=== PATIENT | male | born 1970 | race Caucasian/White ===

== ENCOUNTER 2021-02-01 08:04 | Inpatient (IN) ==
[2021-02-01] MEDS ORDERED: *HR* Ticagrelor 90 MG TABLET PO ONE (08:17)
[2021-02-01] MEDS ORDERED: *HR* Ticagrelor 90 MG TABLET ONE (08:19)
[2021-02-01] MEDS ORDERED: Aspirin 81 MG TAB.CHEW ONE (08:20)
[2021-02-01] MEDS ORDERED: *HR* Heparin 5,000 UNIT/ML VIAL ONE (08:20)
[2021-02-01] MEDS ORDERED: 0.9 % Sodium Chloride 1,000 ML ONE (08:20)
[2021-02-01] MEDS ORDERED: *HR* HYDROmorphone (PF) 1 MG/ML SYRINGE IVP ONE (08:21)
[2021-02-01] MEDS ORDERED: *HR* Heparin 5,000 UNIT/ML VIAL IVP ONE (08:23)
[2021-02-01] MEDS ORDERED: Heparin 1,000 UNITS/500 mL 500 ML ONE (08:41)
[2021-02-01] MEDS ORDERED: Nitroglycerin 1,000 MCG/5 ML VIAL IV ONE (08:41)
[2021-02-01] MEDS ORDERED: *HR* Heparin 10,000 UNIT/10 ML VIAL ONE ×2 (08:41→09:29)
[2021-02-01] MEDS ORDERED: 0.9 % Sodium Chloride 2,000 ML ONE (08:41)
[2021-02-01] MEDS ORDERED: ISOVUE-370 200 ML INFUS..BTL ONE ×2 (08:41→09:33)
[2021-02-01] MEDS ORDERED: *HR* FentaNYL (PF) 100 MCG/2 ML VIAL ONE (09:14)
[2021-02-01] MEDS ORDERED: *HR* Midazolam HCl 2 MG/2 ML VIAL ONE (09:14)
[2021-02-01 09:21] LABS: Basophils # 0.1 K/mcL (0.0-0.2); Basophils % 0.9 %; Eosinophils # 0.1 K/mcL (0.0-0.6); Eosinophils % 0.6 %; Hemoglobin 13.9 g/dL (12.9-16.9); Immature Granulocytes % 0.5 % (0-4); Lymphocytes # 3.1 K/mcL (0.6-4.6); Lymphocytes % 21.1 %; Mean Corpuscular HGB Conc 33.1 g/dL (31.6-35.5); Mean Corpuscular Hemoglobin 31.4 pg (28.0-33.3); Mean Corpuscular Volume 94.8 fL (83.0-100.0); Monocytes # 0.4 K/mcL (0.0-1.3); Monocytes % 2.7 %; Neutrophils # 10.9 K/mcL (1.6-8.9); Platelet Count 165 K/mcL (140-400); Red Blood Count 4.43 M/mcL (4.19-5.50); Red Cell Distribution Width 13.2 % (11.5-14.5); Segmented Neutrophils % 74.2 %; White Blood Count 14.6 K/mcL (4.3-11.1)
[2021-02-01] MEDS ORDERED: *HR* Bivalirudin 250 MG VIAL IVC ONE (09:29)
[2021-02-01 09:50] LABS: Alanine Aminotransferase 37 Units/L (7-52); Albumin 4.2 g/dL (3.5-5.7); Albumin/Globulin Ratio 1.4 (1.1-2.2); Alkaline Phosphatase 56 Units/L (34-104); Aspartate Amino Transferase 45 Units/L (13-39); BUN/Creatinine Ratio 14 (6-26); Bilirubin,Total 0.5 mg/dL (0.3-1.0); Blood Urea Nitrogen 17 mg/dL (6-20); Calcium 8.8 mg/dL (8.6-10.3); Carbon Dioxide 23 mEq/L (23-29); Chloride 100 mEq/L (98-107); Globulin 3.1 g/dL (2.4-3.5); Glucose 126 mg/dL (70-105); Magnesium 1.9 mg/dL (1.6-2.6); Osmolality,Calculated 281 (280-300); Potassium 3.3 mEq/L (3.5-5.1); Sodium 134 mEq/L (136-145); Total Protein 7.3 g/dL (6.4-8.9); eGFR For African Americans > 60 (> 60); eGFR For Non-African Americans > 60 (> 60)
[2021-02-01] MEDS ORDERED: Perflutren Lipid Microsphere 1.3 ML in 0.9 % Sodium Chloride 8.7 ML IVP PRN (10:50)
[2021-02-01] MEDS ORDERED: Naloxone 0.4 MG/ML INJ IVP PRN (10:50)
[2021-02-01 12:37] LABS: Estimated Average Glucose 146 mg/dl; Hemoglobin A1C 6.7 %
[2021-02-01 12:43] LABS: Heparin anti-factor XA UFH 0.81 IU/mL (0.30-0.70); INR 1.4
[2021-02-01 12:59] LABS: Activated Partial Thrombo Time > 360.0 Seconds (26.0-36.0)
[2021-02-01 13:13] LABS: Thyroid Stimulating Hormone 73.096 mcIU/mL (0.340-5.600)
[2021-02-01] MEDS: *HR* Ticagrelor 90 MG TABLET PO SCH (20:28)
[2021-02-02 06:57] LABS: Basophils # 0.1 K/mcL (0.0-0.2); Basophils % 1.2 %; Eosinophils # 0.1 K/mcL (0.0-0.6); Eosinophils % 0.9 %; Hematocrit 43.7 % (37.5-50.1); Hemoglobin 14.4 g/dL (12.9-16.9); Immature Granulocytes % 0.2 % (0-4); Lymphocytes # 2.4 K/mcL (0.6-4.6); Lymphocytes % 24.6 %; Mean Corpuscular Hemoglobin 31.2 pg (28.0-33.3); Mean Corpuscular Volume 94.8 fL (83.0-100.0); Mean Platelet Volume 12.3 fL (9.4-12.4); Monocytes # 0.5 K/mcL (0.0-1.3); Monocytes % 4.7 %; Neutrophils # 6.7 K/mcL (1.6-8.9); Platelet Count 175 K/mcL (140-400); Red Blood Count 4.61 M/mcL (4.19-5.50); Red Cell Distribution Width 13.3 % (11.5-14.5); Segmented Neutrophils % 68.4 %; White Blood Count 9.8 K/mcL (4.3-11.1)
[2021-02-02 07:16] LABS: BUN/Creatinine Ratio 12 (6-26); Blood Urea Nitrogen 15 mg/dL (6-20); Calcium 8.9 mg/dL (8.6-10.3); Carbon Dioxide 24 mEq/L (23-29); Chloride 104 mEq/L (98-107); Chol/HDL Ratio 10.2 (0-4.9); Cholesterol 368 mg/dL (< 200); Glucose 115 mg/dL (70-105); HDL Cholesterol 36 mg/dL (40-59); LDL Cholesterol,Calculated 304 mg/dL (< 100); Osmolality,Calculated 282 (280-300); Potassium 3.6 mEq/L (3.5-5.1); Sodium 135 mEq/L (136-145); Triglycerides 140 mg/dL (< 150); eGFR For African Americans > 60 (> 60); eGFR For Non-African Americans > 60 (> 60)
[2021-02-02] MEDS: Aspirin 81 MG TAB.CHEW PO SCH (08:17)
[2021-02-02] MEDS: *HR* Ticagrelor 90 MG TABLET PO SCH ×2 (08:17→19:52)
[2021-02-02] MEDS: Nicotine 21 MG PATCH.TD24 TD SCH (09:10)
[2021-02-02] MEDS: *HR* Metformin 850 MG TABLET PO SCH (16:22)
[2021-02-03] MEDS: *HR* Metformin 850 MG TABLET PO SCH (07:55)
[2021-02-03] MEDS: Nicotine 21 MG PATCH.TD24 TD SCH (07:55)
[2021-02-03] MEDS: *HR* Ticagrelor 90 MG TABLET PO SCH (07:55)
[2021-02-03] MEDS: Aspirin 81 MG TAB.CHEW PO SCH (07:55)
[2021-02-03 11:40] VITALS: BP 123/80; PULSE 65; TEMP 97.7; O2SAT 98
== END 2021-02-03 14:39 | disposition home or self-care (01) | DRG 247 ==
LOC: EDBD → EMEROOARM 08:04 → 2NNU 09:08 → MERGE 10:08 → SUATTDRO 10:08
PROVIDERS: ADMIT Internal Medicine; ATTEND Internal Medicine